=== PATIENT | female | born 1940 | race Caucasian/White ===

== ENCOUNTER 2021-04-22 16:29 | Emergency (ER) | payer OTHER ==
[2021-04-22 16:47] VITALS: BP 139/80; PULSE 95; TEMP 97.8; BMI 38.6
[2021-04-22 18:22] LABS: BASO % 0.3 % (0-2.0); EOS % 1.7 % (0-4.5); HEMATOCRIT 38.9 % (32.4-45.2); HEMOGLOBIN 13.2 GM/dL (10.7-15.3); LYMPH % 21.9 % (8-40); MCH 30.1 pg (25.7-33.7); MEAN CELL VOLUME 88.7 fl (80-96); MEAN PLT VOLUME 8.7 fl (7.5-11.1); MONO % 5.6 % (3.8-10.2); NEUT % 70.5 % (42.8-82.8); PLATELET COUNT 180 10^3/uL (134-434); RBC 4.38 M/mm3 (3.60-5.2); RDW 13.4 % (11.6-15.6); WHITE BLOOD COUNT 6.4 K/mm3 (4.0-10.0)
[2021-04-22 18:28] LABS: INR 1.09 (0.83-1.09); PROTHROMBIN TIME (PATIENT) 12.5 SEC (9.7-13.0)
[2021-04-22 18:31] LABS: ACTIVATED PTT 28.4 SECONDS (25.2-36.5)
[2021-04-22 18:43] LABS: CHLORIDE 104 mmol/L (98-107); SODIUM 139 mmol/L (136-145)
[2021-04-22 18:45] LABS: ANION GAP 6 MMOL/L (8-16); BLOOD UREA NITROGEN 18.2 mg/dL (7-18); CALCIUM 9.5 mg/dL (8.5-10.1); CO2 28 mmol/L (21-32)
[2021-04-22 18:46] LABS: ALBUMIN 3.8 g/dl (3.4-5.0); GLUCOSE,RANDOM 139 mg/dL (74-106)
[2021-04-22 18:48] LABS: SGOT/AST 24 U/L (15-37); SGPT/ALT 29 U/L (13-61)
[2021-04-22 18:49] LABS: CREATININE 0.9 mg/dL (0.55-1.3)
[2021-04-22 18:50] LABS: BILIRUBIN,TOTAL 0.4 mg/dL (0.2-1); TOT PROT 7.3 g/dl (6.4-8.2)
[2021-04-22 18:51] LABS: ALK PHOS 94 U/L (45-117)
[2021-04-22 18:54] LABS: N-TERMINAL BNP 92.8 pg/ml (5-450)
== END 2021-04-22 20:31 | disposition home or self-care (01) ==
LOC: JER 16:29
DX: R22.43 Localized swelling, mass and lump, lower limb, bilateral (principal)
CPT/HCPCS: 36415; 73660-TC-LT-FY; 80053; 82550; 83880; 84484; 85025; 85610; 85730; 93005; 93010; 93970-TC; 99284-25